=== PATIENT | male | born 1965 | race Caucasian/White ===

== ENCOUNTER → 2020-10-01 | Outpatient (CLI) | payer OTHER ==
[~2020-10-01] MED LIST: BAYER ASPIRIN C81 MG PO; MULTI VITAMINS1 TAB PO
[2020-10-01 16:04] LABS: THYROID STIM HORMONE (HS) 2.54 uIU/ml (0.358-4.75)
[2020-10-02 14:08] LABS: t-TRANSGLUTAMINASE (tTG) IGA <2 U/mL (0-3); t-TRANSGLUTAMINASE (tTG) IgG 7 U/mL (0-5)
== END | disposition home or self-care (01) ==
LOC: LAB 15:17
PROVIDERS: ATTEND Internal Medicine Gastroenterology
DX: Z00.00 Encounter for general adult medical examination without abnormal findings (principal); K29.70 Gastritis, unspecified, without bleeding; R13.10 Dysphagia, unspecified; K31.89 Other diseases of stomach and duodenum